=== PATIENT | male | born 1990 | race Caucasian/White ===

== ENCOUNTER 2021-08-19 22:00 | Emergency (ER) | payer SELFPAY ==
--- NOTE | ~2021-08-19 | XR_ITS ---
EXAMINATION: XR chest 2V DATE: 08/19/2021 22:49 INDICATION: Syncope. TECHNIQUE: Frontal and lateral views of the chest were obtained. COMPARISON: Chest 2 views 08/03/2011, chest CT 08/03/2011 FINDINGS: The chest demonstrates clear lungs without pneumonia, pleural effusion, or pneumothorax. Th e heart size is normal. IMPRESSION: 1. No acute cardiopulmonary disease. Reviewed, dictated and finalized at location A.
--- NOTE | ~2021-08-19 | CT_ITS ---
EXAMINATION: CT brain wo con DATE: 08/19/2021 22:59 INDICATION: Head injury. TECHNIQUE: Computed tomography (CT) of the head was performed without intravenous contrast. The mA wa s adjusted according to patient size. Iterative reconstruction technique was employed. The dose-lengt h product was 605.33 mGy-cm. COMPARISON: None FINDINGS: There is no intracranial hemorrhage, acute infarction, or abnormal intracranial mass lesion . The ventricles are normal in size. The paranasal sinuses are clear. The mastoid air cells are zeina l. IMPRESSION: 1. Normal brain. Reviewed, dictated and finalized at location A. IMPRESSION: 1. Normal brain.
[2021-08-19 22:05] VITALS: BP 92/54; PULSE 69; RESP 14; O2SAT 99
--- NOTE | 2021-08-19 22:17 | ECG_ITS ---
Measurements Intervals Purchase Rate: 62 P: 59 MS: 157 QRS: 40 QRSD: 99 T: 44 QT: 385 QTc: 393 Interpretive Statements SINUS RHYTHM ST ELEVATION IN DIFFUSE LEADS, PROBABLY EARLY REPOLARIZATION BORDERLINE ECG Electronically Signed On 08-20-2021 6:04:48 CDT by Lawrence Linares D.O.
--- NOTE | 2021-08-19 22:24 | ED.DIZZY ---
HPI - Dizziness General Chief Complaint: Syncope <Calixto Salcido MD - Last Filed: 08/20/21 03:09> Stated Complaint: laceration to forhead, syncope <Calixto Salcido MD - Last Filed: 08/20/21 03:09> Time Seen by Provider: 08/19/21 22:11 <Calixto Salcido MD - Last Filed: 08/20/21 03:09> Source: patient <Calixto Salcido MD - Last Filed: 08/20/21 03:09> History of Present Illness HPI Narrative: Patient presents with syncope. Patient received 2 episodes today. His first episode was earlier this morning stepped outside to smoke a cigarette he felt lightheaded walked and rested and symptoms resolved. Prior to come the ER he had another event where he stepped outside to smoke a cigarette started feel lightheaded and dizzy walking in the house and then fell to the ground. Reports her people outside smoking but no one checked on him. He woke up and they transported him to the emergency room ports in the car he was feeling improved when he sat up to walk into the ER he had return of his lightheadedness. He reports a history of when he was a child that he would get episodes like this when standing up. He is unsure of his diagnosis but was not on any medications and his symptoms appear to resolve. Denies any chest pain or shortness of breath denies any headache changes in vision focal numbness or weakness. [place] any shortness of breath denies any recent hospitalizations or surgeries denies any significant cardiac history. <Calixto Salcido MD - Last Filed: 08/20/21 03:09> Related Data Allergies/Adverse Reactions: Allergies Allergy/AdvReac Type Severity Reaction Status Date / Time cefdinir Allergy Verified 08/03/11 18:17 Penicillins Allergy Verified 08/03/11 18:17 <Calixto Salcido MD - Last Filed: 08/20/21 03:09> Review of Systems Review of Systems: CONSTITUTIONAL: Denies fever, chills, or sweats. EYES: Denies visual changes, redness, or discharge. ENT: Denies rhinorrhea, congestion, sore throat, or otalgia. CARDIOVASCULAR: Denies chest pain, palpitations, or edema. RESPIRATORY: Denies cough or dyspnea. GASTROINTESTINAL: Denies abdominal pain, nausea, vomiting, or diarrhea. GENITOURINARY: Denies dysuria or hematuria. SKIN: Denies rash or itching. MUSCULOSKELETAL: Denies back pain, joint pain, or myalgia. NEUROLOGIC: Denies headache, numbness, or weakness. PSYCHIATRIC: Denies anxiety or depression. <Calixto Salcido MD - Last Filed: 08/20/21 03:09> All systems reviewed & are unremarkable except as noted in HPI and below <Calixto Salcido MD - Last Filed: 08/20/21 03:09> PMFSH Past Medical History Medical History: Medical History (Updated 08/21/21 @ 00:00 by Rosy Sparrow) Patient denies significant medical history <Calixto Salcido MD - Last Filed: 08/20/21 03:09> Social History Social History: Social History (Updated 08/19/21 @ 22:26 by Calixto Salcido MD) Smoking status: Current every day smoker <Calixto Salcido MD - Last Filed: 08/20/21 03:09> Exam Narrative: GENERAL: Well-appearing, well-nourished, and in no acute distress. HEAD: Normocephalic, laceration to the left lateral forehead EYES: PERRLA and EOMI. ENT: Nares clear, no rhinorrhea or epistaxis. Mucous membranes moist. NECK: Supple. No masses. No JVD CHEST: Clear to auscultation. No respiratory distress. No wheezes rales or rhonchi HEART: Regular rate and rhythm. No murmur heard. Normal peripheral pulses. ABDOMEN: Soft, nontender, nondistended, normal active bowel sounds. EXTREMITIES: Normal range of motion. No edema. SKIN: Warm, dry, no rash. NEURO: Current nerves II through XII are intact patient has 5 out of 5 strength all extremities sensation intact light touch in all extremities alert and oriented x3. PSYCH: Normal mood and affect. <Calixto Salcido MD - Last Filed: 08/20/21 03:09> Course Reevaluation(s) Reevaluation #1: Patient resting comfortably results plan [email or web address]
[2021-08-19] MEDS: SODIUM CHLORIDE 0.9% IV 1,000 ML 999 ML IV CONT (22:28)
[2021-08-19 22:31] VITALS: BP 93/70; PULSE 62; RESP 20; TEMP 36.4; O2SAT 100
[2021-08-19 22:41] LABS: Glucose Point of Care 123 mg/dl (65-105)
[2021-08-19 22:42] LABS: Basophils Absolute Auto 0.1 K/mm3 (0.0-0.1); Basophils Percent Auto 0.5 % (0.2-1.2); Eosinophils Absolute Auto 0.2 K/mm3 (0-0.3); Eosinophils Percent Auto 1.9 % (0-4.4); Hemoglobin 14.6 g/dL (14.0-18.0); Immature Granulocyte Absolute 0.05 K/mm3 (0.00-0.031); Immature Granulocyte Percent A 0.4 % (0-0.5); Lymphocytes Absolute Auto 4.65 K/mm3 (0.9-3.2); Mean Corpuscular HGB Conc 33.2 g/dl (32-36); Mean Corpuscular Hemoglobin 31.9 pg (26-34); Mean Corpuscular Volume 96.3 fl (80-100); Mean Platelet Volume 10.4 fl (7.4-10.4); Monocytes Absolute Auto 0.9 K/mm3 (0.1-0.6); Monocytes Percent Auto 7.7 % (2.6-8.5); Neutrophils Percent Auto 50.5 % (45.5-73.1); Platelet Count Result 381 k/mm3 (150-375); Red Blood Count 4.57 M/mm3 (4.6-6.20); Red Cell Distribution Width 12.8 % (11.5-14.5); White Blood Count 11.9 K/mm3 (4.5-10.0)
[2021-08-19 22:57] LABS: Alanine Aminotransferase 16 U/L (6-50); Albumin Level 4.2 g/dL (3.5-5.1); Alkaline Phosphatase 56 U/L (38-126); Anion Gap 7 mmol/L (8-16); Aspartate Amino Transferase 34 U/L (17-59); Bilirubin,Total 0.3 mg/dL (0.2-1.3); Blood Urea Nitrogen 17 mg/dL (9-20); Calcium 8.7 mg/dL (8.4-10.2); Carbon Dioxide 28 mmol/L (22-30); Chloride 104 mmol/L (98-107); Estimated Glomerular Filt Rate > 60; Glucose 143 mg/dL (65-110); Potassium 3.7 mmol/L (3.4-5.0); Sodium 139 mmol/L (137-145)
[2021-08-19 23:00] VITALS: PULSE 69; RESP 24; O2SAT 100
--- NOTE | 2021-08-19 23:00 | PC.NURSE ---
Assumed care of patient at this time. Report received from SHAWN Amin.
[2021-08-19 23:15] VITALS: PULSE 64; RESP 20; O2SAT 100
[2021-08-19 23:30] VITALS: PULSE 65; RESP 17; O2SAT 100
[2021-08-19 23:35] LABS: D Dimer 0.31 ug/mL (<0.48)
[2021-08-19 23:45] VITALS: PULSE 66; RESP 18; O2SAT 100
[2021-08-20] VITALS (8 sets, daily range): BP systolic 97; BP diastolic 58; PULSE 63–72; RESP 16–19; O2SAT 96–100
[2021-08-20] MEDS: TETANUS,DIPHTHERIA,AC PERTUSSIS ADULT (0.5 ML) BOOSTRIX IM (00:21)
== END 2021-08-20 02:20 | disposition home or self-care (01) ==
PROVIDERS: Emergency Provider Emergency Medicine
DX: R55 Syncope and collapse (principal); S01.81XA Laceration without foreign body of other part of head, initial encounter; Z23 Encounter for immunization; F17.210 Nicotine dependence, cigarettes, uncomplicated; W18.39XA Other fall on same level, initial encounter
CPT/HCPCS: 12011; 36415; 70450; 71046; 80053; 82948; 85025; 85380; 90471; 90715; 93005; 96361; 96374; 99284; J0131; J7030